=== PATIENT | female | born 1970 | race African-American/Black ===

== ENCOUNTER 2017-02-12 08:36 | Emergency (ER) | payer OTHER ==
[~2017-02-12] VITALS: Ht 165.1 cm; Wt 91.0 kg
[2017-02-12] MEDS ORDERED: MORPHINE SULFATE 10 MG/ML CPJ IM ONE (10:45)
[2017-02-12] MEDS ORDERED: ONDANSETRON 4MG ODT PO ONE (10:45)
[2017-02-12] MEDS ORDERED: DIAZEPAM 5 MG TABLET PO ONE (10:45)
[2017-02-12 11:17] LABS: CLARITY URINE CLEAR (CLEAR); COLOR URINE YELLOW (YELLOW); GLUCOSE URINE NEGATIVE (NEGATIVE); KETONES URINE NEGATIVE (NEGATIVE); LEUKOCYTE ESTERASE URINE TRACE (NEGATIVE); NITRITE URINE NEGATIVE (NEGATIVE); OCCULT BLOOD URINE NEGATIVE (NEGATIVE); PROTEIN URINE NEGATIVE (NEGATIVE); SPECIFIC GRAVITY URINE 1.022 (1.005-1.030); UROBILINOGEN URINE 0.2 E.U./dL (0.2-1.0)
[2017-02-12] MEDS ORDERED: LEVOFLOXACIN 500MG TABLET PO ONE (12:45)
[2017-02-12 13:00] VITALS: BP 148/97
== END 2017-02-12 13:24 | disposition home or self-care (01) ==
LOC: ER 08:54
DX: M54.40 Lumbago with sciatica, unspecified side (principal); I10 Essential (primary) hypertension; N39.0 Urinary tract infection, site not specified; Z88.0 Allergy status to penicillin; Z91.018 Allergy to other foods
CPT/HCPCS: 72100; 81001; 81025; 82962; 96372; 99285; J2270; Q0162; Z7610

== ENCOUNTER 2017-05-05 08:49 | Emergency (ER) | payer OTHER ==
[~2017-05-05] VITALS: Ht 167.6 cm; Wt 75.0 kg
[2017-05-05] MEDS ORDERED: MORPHINE SULFATE 4 MG/ML CPJ (NOT FOR IM USE) IV STA (10:52)
[2017-05-05] MEDS ORDERED: ONDANSETRON HCL 4MG/2ML VIAL IV STA (10:52)
[2017-05-05] MEDS ORDERED: MAGNESIUM/ALUMINUM HYDROXIDE/SIMETHICONE 30ML UDC PO STA (10:52)
[2017-05-05] MEDS ORDERED: DICYCLOMINE 10 MG/5 ML ORAL SYR PO STA (10:52)
[2017-05-05] MEDS ORDERED: SODIUM CHLORIDE 0.9% 1,000 ML IV ONE ×2 (10:52→14:00)
[2017-05-05] MEDS ORDERED: FAMOTIDINE 20MG/2ML VIAL IV STA (10:52)
[2017-05-05] MEDS: VISCOUS LIDOCAINE 2% 15 ML UDC PO STA ×2 (11:11→11:36)
[2017-05-05 11:34] LABS: HEMATOCRIT. 37.8 % (36.0-48.0); HEMOGLOBIN. 12.5 g/dL (12.0-16.0); MEAN CORPUSCULAR HEMOGLOBIN 28.6 pg (28.0-32.0); MEAN CORPUSCULAR VOLUME 86.3 fL (81.0-99.0); MEAN PLATELET VOLUME 8.8 fl (7.4-10.4); PLATELET 296 x1000/uL (130-400); RED BLOOD CELL COUNT 4.38 mill/uL (4.2-5.4); RED CELL DISTRIBUTION WIDTH 13.9 % (11.6-14.6)
[2017-05-05 11:42] LABS: CARBON DIOXIDE 29 mEq/L (21-32); CHLORIDE 110 mEq/L (98-107)
[2017-05-05 11:44] LABS: CLARITY URINE CLEAR (CLEAR); COLOR URINE YELLOW (YELLOW); KETONES URINE NEGATIVE (NEGATIVE); LEUKOCYTE ESTERASE URINE NEGATIVE (NEGATIVE); NITRITE URINE NEGATIVE (NEGATIVE); OCCULT BLOOD URINE 2+ (NEGATIVE); PH URINE 8.5 (4.5-8.0); PROTEIN URINE NEGATIVE (NEGATIVE); UROBILINOGEN URINE 0.2 E.U./dL (0.2-1.0)
[2017-05-05 11:47] LABS: INR 1.1; PROTHROMBIN TIME 11.1 sec (9.4-11.6)
[2017-05-05 11:50] LABS: PLATELET ESTIMATE NORMAL
[2017-05-05 12:09] LABS: HCG SCREEN NEGATIVE
[2017-05-05] MEDS ORDERED: MECLIZINE 25MG TABLET PO ONE (14:00)
[2017-05-05] MEDS ORDERED: METOCLOPRAMIDE HCL 10MG/2ML VIAL IV ONE (16:15)
[2017-05-05 16:22] VITALS: BP 143/81
== END 2017-05-05 16:53 | disposition home or self-care (01) ==
LOC: ER 09:11
DX: R11.2 Nausea with vomiting, unspecified (principal); R10.13 Epigastric pain; I10 Essential (primary) hypertension; Z88.0 Allergy status to penicillin; Z91.018 Allergy to other foods; Z86.59 Personal history of other mental and behavioral disorders
CPT/HCPCS: 36415; 80053; 81001; 83690; 84703; 85025; 85610; 96361; 96374; 96375; 99285; J2270; J2405; J2765; J3490; J7030; Z7610; J8597

== ENCOUNTER 2017-09-01 12:35 | Emergency (ER) | payer OTHER ==
[~2017-09-01] VITALS: Ht 165.1 cm; Wt 101.0 kg
[2017-09-01] MEDS ORDERED: KETOROLAC 60MG/2ML VIAL IM STA (16:16)
[2017-09-01 18:15] VITALS: BP 137/89
== END 2017-09-01 18:21 | disposition home or self-care (01) ==
LOC: ER 14:14
DX: M17.12 Unilateral primary osteoarthritis, left knee (principal); M71.22 Synovial cyst of popliteal space [Baker], left knee; G89.29 Other chronic pain; Z88.0 Allergy status to penicillin; Z91.018 Allergy to other foods
CPT/HCPCS: 73562; 81025; 93971; 96372; 99284; J1885

== ENCOUNTER 2018-09-16 07:28 | Emergency (ER) | payer OTHER ==
[~2018-09-16] VITALS: Ht 165.1 cm; Wt 102.0 kg
[2018-09-16] MEDS ORDERED: KETOROLAC 60MG/2ML VIAL IM ONE (12:15)
[2018-09-16 13:14] VITALS: BP 160/108
== END 2018-09-16 13:46 | disposition home or self-care (01) ==
LOC: ER 07:28
DX: M54.9 Dorsalgia, unspecified (principal); W10.8XXA Fall (on) (from) other stairs and steps, initial encounter; Y93.01 Activity, walking, marching and hiking; Y92.89 Other specified places as the place of occurrence of the external cause
CPT/HCPCS: 96372; 99283; J1885